=== PATIENT | female | born 1975 | race Caucasian/White ===

== ENCOUNTER 2018-06-07 11:59 | Emergency (ER) | payer OTHER ==
[~2018-06-07 11:59] MED LIST: ALB0.5 INH; ALLERGY SHOTS; ATR10 PO; BLOOD PRESSURE MED PO; CETI-459 PO; FLUT16SP20 NS; IBUP-1618 PO; KET10 PO; KETO5DRO50 OP; LO OVRAL; LOR5 PO; LOR5/325 PO; MELA3TAB31 PO; METXR500 PO; MONT10TA PO; MONT10TA22 PO; OMEP-114 PO; ONDA4TAB PO
[2018-06-07] MEDS ORDERED: CARV25TA77 PO (12:16)
[2018-06-07] MEDS ORDERED: LOSA-54 PO (12:16)
--- NOTE | 2018-06-07 12:18 | ER Report ---
History and Physical Time Seen By MD: 12:14 Hx. of Stated Complaint: BACK SIDE PAIN HPI/ROS CHIEF COMPLAINT: Right flank pain HISTORY OF PRESENT ILLNESS: This is a 43-year-old female presents to the emergency department for right flank pain. Patient states that yesterday she had her back adjusted by her chiropractor. States that last night she developed sudden onset of right flank pain, progressively getting worse throughout the night. Nothing that she takes is helping. Patient is tearful. She does have nausea no vomiting. No diarrhea. No fevers or chills. No other complaints at this time. Although she does state that she has had some mild dysuria. REVIEW OF SYSTEMS: Constitutional: No fever, no chills. Eyes: No discharge. ENT: No sore throat. Cardiovascular: No chest pain, no palpitations. Respiratory: No cough, no shortness of breath. Gastrointestinal: As above. Genitourinary: No hematuria. Musculoskeletal: As above. Skin: No rashes. Neurological: No headache. Allergies: Coded Allergies: Wheat Flour (Verified Allergy, Severe, ANAPHALACTSIS, 06/07/18) levofloxacin (Verified Allergy, Severe, HIVES, 06/07/18) Sulfa (Sulfonamide Antibiotics) (Verified Allergy, Intermediate, SWELLING TO FACE, 06/07/18) Home Meds Active Scripts Nitrofurantoin Monohyd/M-Cryst (MACROBID 100 MG CAPSULE) 100 Mg Capsule, 100 MG PO BID for 5 Days, #10 CAPSULE 0 Refills Prov:KELLY BRAY Reyes ASSOCIATE DIRECTOR REGULATORY AFFAIRS-BC 06/07/18 Reported Medications Dulaglutide (Trulicity) 0.75 Mg/0.5 Ml Pen.injctr, SQ Q7DAY 06/07/18 Losartan/Hydrochlorothiazide (LOSARTAN-HCTZ 100-25 MG TAB) 1 Each Tablet, 1 CAP PO DAILY 06/07/18 Carvedilol (COREG) 25 Mg Tablet, 25 MG PO BID, #10 TAB 06/07/18 Omeprazole (PRILOSEC) 20 Mg Capsule.dr, PO DAILY 06/17/13 [Blood Pressure Med] No Conflict Check, PO HS 06/17/13 Fluticasone Propionate (Flonase) 16 Gm [place], 0 NS BID, 0 Refills 11/30/11 [Lo Ovral] No Conflict Check, 0 Refills 11/30/11 Atorvastatin (Lipitor) 10 Mg Tab, 10 MG PO QHS, 0 Refills 11/30/11 Ibuprofen (Motrin) 400 Mg Tablet, 400 MG PO PRN, #20 0 Refills 11/30/11 Albuterol Sulfate (Albuterol Inh Conc) 2.5 Mg/0.5 Ml Nebu, 2.5 MG INH ONCE, 0 Refills DILUTE BEFORE USING 05/29/08 Cetirizine Hcl (Zyrtec) 10 Mg Tablet, 10 MG PO QDAY, 0 Refills 05/29/08 Montelukast Sodium (Singulair) 10 Mg Tablet, 10 MG PO QDAY, 0 Refills 05/29/08 Discontinued Reported Medications Montelukast Sodium (SINGULAIR) 10 Mg Tablet, PO DAILY 06/17/13 Metformin Hcl (Metformin Er) 500 Mg Tab.sr.24h, 500 MG PO, 0 Refills 11/30/11 Discontinued Scripts Ondansetron (ZOFRAN ODT) 4 Mg Tab.rapdis, 4 MG PO Q6H PRN for NAUSEA, #20 TAB 0 Refills TAKE 1 TABLET BY MOUTH EVERY 12 HOURS Prov:GALE COLMENARES MD 06/17/13 Ketorolac Tromethamine (KETOROLAC TROMETHAMINE) 10 Mg Tab, 10 MG PO Q6H PRN for PAIN, #12 TAB 0 Refills Prov:GALE COLMENARES MD 06/17/13 Hydrocodone Bit/Acetaminophen (HYDROCODON-ACETAMINOPHEN 5-325) 1 Each Tablet, 1 EACH PO Q4-6H PRN for PAIN, #12 0 Refills TAKE ONE TABLET BY MOUTH EVERY 4-6 HOURS NEEDED FOR PAIN Prov:GALE COLMENARES MD 06/17/13 Past Medical/Surgical History The patient has a past medical and surgical history of heart murmur, hypertension, hypercholesterolemia, bronchitis, pneumonia, wears glasses, prediabetic, does take metformin, knee surgeries, tonsillectomy, anxiety. Reviewed Nurses Notes: Yes Hx Smoking: No Hx Substance Use Disorder: No Hx Alcohol Use: Yes (OCC) Constitutional Vital Sign - Last 24 Hours 06/07/18 06/07/18 06/07/18 06/07/18 12:03 12:09 12:30 12:59 Temp 97.9 Pulse 91 90 Resp 13 B/P (MAP) 163/101 (121) 163/101 178/86 (116) Pulse Ox 95 88 O2 Delivery Room Air 06/07/18 06/07/18 06/07/18 06/07/18 13:00 13:29 13:34 14:00 Pulse 89 83 B/P (MAP) 139/68 (91) 167/97 (120) Pulse Ox 95 97 06/07/18 06/07/18 06/07/18 06/07/18 14:04 14:09 14:30 14:39 Pulse 82 86 89 B/P (MAP) 167/83 (111) Pulse Ox 97 97 90 06/07/18 15:00 B/P (MAP) 168/77 (107) Physical Exam General Appearance: The patient is alert, has no immediate need for airway protection and no signs of toxicity. Eyes: Pupils equal and round no pallor or injection. ENT, Mouth: Mucous membranes are moist. Respiratory: There are no retractions, lungs are clear to auscultation. Cardiovascular: Regular rate and rhythm, systolic murmur, no clicks or rubs. Gastrointestinal: Abdomen is round, soft and non tender, no masses, bowel sounds normal. Neurological: Alert and oriented 4. Moving all extremities. Following all commands. No focal neuro deficits. Skin: Warm and dry, no rashes. Musculoskeletal: Neck is supple non tender. Right CVA tenderness. Extremities are nontender, nonswollen and have full range of motion. DIFFERENTIAL DIAGNOSIS: After history and physical exam differential diagnosis was considered for back pain including but not limited to muscular pain, herniated disc, spine fracture, intra-abdominal causes and urinary tract i nfection. Medical Decision Making Data Points Result Diagram: 06/07/18 1246 06/07/18 1246 Laboratory Hematology Test 06/07/18 12:46 06/07/18 13:19 Red Blood Count 4.80 M/uL (4.17-5.56) Mean Corpuscular Volume 82.2 fL (80.0-96.0) Mean Corpuscular Hemoglobin 27.9 pg (26.0-33.0) Mean Corpuscular Hemoglobin Concent 34.0 g/dL (32.0-36.0) Red Cell Distribution Width 13.3 % (11.5-14.5) Mean Platelet Volume 7.7 fL (7.2-11.1) Neutrophils (%) (Auto) 82.4 % (39.4-72.5) Lymphocytes (%) (Auto) 11.4 % (17.6-49.6) Monocytes (%) (Auto) 5.8 % (4.1-12.4) Eosinophils (%) (Auto) 0.1 % (0.4-6.7) Basophils (%) (Auto) 0.3 % (0.3-1.4) Nucleated RBC Relative Count (auto) 0.0 /100WBC Neutrophils # (Auto) 11.8 K/uL (2.0-7.4) Lymphocytes # (Auto) 1.6 K/uL (1.3-3.6) Monocytes # (Auto) 0.8 K/uL (0.3-1.0) Eosinophils # (Auto) 0.0 K/uL (0.0-0.5) Basophils # (Auto) 0.0 K/uL (0.0-0.1) Nucleated RBC Absolute Count (auto) 0.01 K/uL Sodium Level 138 mmol/L (137-145) Potassium Level 3.9 mmol/L (3.5-5.0) Chloride Level 104 mmol/L (98-107) Carbon Dioxide Level 23 mmol/L (22-31) Blood Urea Nitrogen 16 mg/dl (7-18) Creatinine 0.80 mg/dl (0.52-1.04) Glomerular Filtration Rate Calc > 60.0 Random Glucose 110 mg/dl (75-110) Calcium Level 9.4 mg/dl (8.4-10.2) Total Bilirubin 1.2 mg/dl (0.2-1.3) Aspartate Amino Transf (AST/SGOT) 20 U/L (0-35) Alanine Aminotransferase (ALT/SGPT) 27 U/L (0-56) Alkaline Phosphatase 90 U/L (0-126) Total Protein 7.6 g/dl (6.3-8.2) Albumin 4.0 g/dl (3.5-5.0) Human Chorionic Gonadotropin, Qual Negative (NEGATIVE) Urine Color Yellow Urine Clarity Slightly-cloudy Urine pH 5.0 pH (4.8-9.5) Urine Specific [place] 1.014 Urine Protein 100 mg/dL (NEGATIVE) Urine Glucose (UA) Negative mg/dL (NEGATIVE) Urine Ketones Negative mg/dL (NEGATIVE) Urine Blood Moderate (NEGATIVE) Urine Nitrite Negative (NEGATIVE) Urine Bilirubin Negative (NEGATIVE) Urine Urobilinogen Negative mg/dL (0.2-1.9) Urine Leukocyte Esterase Moderate (NEGATIVE) Urine RBC 70 /HPF (0-2/HPF) Urine WBC 221 /HPF (0-5/HPF) Urine Squamous Epithelial Cells Many /LPF (</=FEW) Urine Transitional Epithelial Cells Moderate /LPF (NONE-FEW) Urine Bacteria Moderate /HPF (NONE-FEW) Urine Mucus Few /HPF (NONE-FEW) Chemistry Test 06/07/18 12:46 06/07/18 13:19 White Blood Count 14.4 k/uL (4.5-11.0) Red Blood Count 4.80 M/uL (4.17-5.56) Hemoglobin 13.4 g/dL (12.0-16.0) Hematocrit 39.5 % (34.0-47.0) Mean Corpuscular Volume 82.2 fL (80.0-96.0) Mean Corpuscular Hemoglobin 27.9 pg (26.0-33.0) Mean Corpuscular Hemoglobin Concent 34.0 g/dL (32.0-36.0) Red Cell Distribution Width 13.3 % (11.5-14.5) Platelet Count 332 K/uL (150-450) Mean Platelet Volume 7.7 fL (7.2-11.1) Neutrophils (%) (Auto) 82.4 % (39.4-72.5) Lymphocytes (%) (Auto) 11.4 % (17.6-49.6) Monocytes (%) (Auto) 5.8 % (4.1-12.4) Eosinophils (%) (Auto) 0.1 % (0.4-6.7) Basophils (%) (Auto) 0.3 % (0.3-1.4) Nucleated RBC Relative Count (auto) 0.0 /100WBC Neutrophils # (Auto) 11.8 K/uL (2.0-7.4) Lymphocytes # (Auto) 1.6 K/uL (1.3-3.6) Monocytes # (Auto) 0.8 K/uL (0.3-1.0) Eosinophils # (Auto) 0.0 K/uL (0.0-0.5) Basophils # (Auto) 0.0 K/uL (0.0-0.1) Nucleated RBC Absolute Count (auto) 0.01 K/uL Glomerular Filtration Rate Calc > 60.0 Calcium Level 9.4 mg/dl (8.4-10.2) Total Bilirubin 1.2 mg/dl (0.2-1.3) Aspartate Amino Transf (AST/SGOT) 20 U/L (0-35) Alanine Aminotransferase (ALT/SGPT) 27 U/L (0-56) Alkaline Phosphatase 90 U/L (0-126) Total Protein 7.6 g/dl (6.3-8.2) Albumin 4.0 g/dl (3.5-5.0) Human Chorionic Gonadotropin, Qual Negative (NEGATIVE) Urine Color Yellow Urine Clarity Slightly-cloudy Urine pH 5.0 pH (4.8-9.5) Urine Specific [place] 1.014 Urine Protein 100 mg/dL (NEGATIVE) Urine Glucose (UA) Negative mg/dL (NEGATIVE) Urine Ketones Negative mg/dL (NEGATIVE) Urine Blood Moderate (NEGATIVE) Urine Nitrite Negative (NEGATIVE) Urine Bilirubin Negative (NEGATIVE) Urine Urobilinogen Negative mg/dL (0.2-1.9) Urine Leukocyte Esterase Moderate (NEGATIVE) Urine RBC 70 /HPF (0-2/HPF) Urine WBC 221 /HPF (0-5/HPF) Urine Squamous Epithelial Cells Many /LPF (</=FEW) Urine Transitional Epithelial Cells Moderate /LPF (NONE-FEW) Urine Bacteria Moderate /HPF (NONE-FEW) Urine Mucus Few /HPF (NONE-FEW) Urinalysis Test 06/07/18 13:19 Urine Color Yellow Urine Clarity Slightly-cloudy Urine pH 5.0 pH (4.8-9.5) Urine Specific [place] 1.014 Urine Protein 100 mg/dL (NEGATIVE) Urine Glucose (UA) Negative mg/dL (NEGATIVE) Urine Ketones Negative mg/dL (NEGATIVE) Urine Blood Moderate (NEGATIVE) Urine Nitrite Negative (NEGATIVE) Urine Bilirubin Negative (NEGATIVE) Urine Urobilinogen Negative mg/dL (0.2-1.9) Urine Leukocyte Esterase Moderate (NEGATIVE) Urine RBC 70 /HPF (0-2/HPF) Urine WBC 221 /HPF (0-5/HPF) Urine Squamous Epithelial Cells Many /LPF (</=FEW) Urine Transitional Epithelial Cells Moderate /LPF (NONE-FEW) Urine Bacteria Moderate /HPF (NONE-FEW) Urine Mucus Few /HPF (NONE-FEW) EKG/Imaging Imaging Location: [facility] Patient: Rosa Tapia : 1975 Visit/Account:[id number] Date of Sevice: 06/07/2018 ABDOMEN/PELVIS W/O CONTRAST COMPARISONS: None. ADDITIONAL PERTINENT HISTORY: Right flank pain. TECHNIQUE: Multiple axial images are obtained from the lung bases through the lesser trochanters without IV contrast. One of the following dose optimization techniques was utilized in the performance of this exam: Automated exposure control; adjustment of the mA and/or kV according to the patient's size; or use of an iterative reconstruction technique. Specific details can be referenced in the facility's radiology CT exam operational policy. FINDINGS: Lung bases: Negative. Free air and free fluid: None. Liver: Negative for a noncontrasted examination.. Spleen: Negative for a noncontrasted examination. Adrenal glands: Negative. Kidneys, ureters and urinary bladder: Mild nonspecific stranding about both kidneys somewhat greater on the right than left. Minimal right-sided hydroureteronephrosis without clear evidence of a ureteral calculus which suggests a recently passed stone from the right collecting system. No right renal calculi. No left renal or ureteral calculi.. Pancreas: Grossly negative. Gallbladder: Negative.. Bowel and mesentery: Negative including a normal-appearing appendix in the right lower quadrant.. Lymph node assessment: Negative. Abdominal pelvic vasculature: Mild atherosclerotic disease of the abdominal aorta and its major branches.. Intrapelvic contents: Negative.. Surrounding soft tissues: Negative. Osseous structures: Previous fusion at the thoracolumbar junction. Mild spondylitic change at multiple levels. No acute appearing bony abnormalities.. IMPRESSION: 1. Findings suggestive of a recently passed calculus from the right collecting system with mild right-sided hydroureteronephrosis without evidence of renal or ureteral calculi at this time. 2. No other acute intra-abdominal or intrapelvic process. Report Dictated By: Raul Cortez MD at 06/07/2018 1:48 PM Report E-Signed By: Raul Cortez MD at 06/07/2018 1:54 PM [email or web address]:[email or web address] ED Course/Re-evaluation Clinical Indication for ER IV: Hydration, IV Access ED Course The patient was admitted to a room. Extremities were obtained. Differential diagnoses were considered. An IV was started. A CBC, CMP and UA were obtained. A 1 L normal saline bolus was given. Patient was given 50 g IV fentanyl, 4 mg IV Zofran, 30 mg IV Toradol. Lab studies showing white blood cell count 14.4, with a left shift, chemistry unremarkable, UA showing moderate blood, gross urinary tract infection, with urine white blood cells at 221. CT of the abdomen pelvis negative for a renal colic, however they do state that there is hydronephrosis on the right side is likely that the patient did pass a stone. Given the pain as well as the likely passing of a renal stone and the severity of the urinary tract infection 1 g of Rocephin was given IV. She was also given Macrobid to go home. Patient states she is feeling much better after the medications. I did recommend that she follow up with her PCP within one week for reevaluation. Patient expressed understanding and was discharged home. Encouraged to return to the ED for any other concerns or worsening symptoms. Decision to Disposition Date: Jun 07, 2018 Decision to Disposition Time: 15:06 Depart Departure Latest Vital Signs Vital Signs Date Time Temp Pulse Resp B/P (MAP) Pulse Ox O2 Delivery O2 Flow Rate FiO2 06/07/18 15:00 168/77 (107) 06/07/18 14:39 89 90 06/07/18 12:09 97.9 13 Room Air Impression: Primary Impression: Renal colic on right side Additional Impression: Urinary tract infection Condition: Stable Disposition: HOME OR SELF-CARE Referrals: VY VALERIO PA-C (PCP) 1 Week New Scripts Nitrofurantoin Monohyd/M-Cryst (MACROBID 100 MG CAPSULE) 100 Mg Capsule 100 MG PO BID for 5 Days, #10 CAPSULE 0 Refills Prov: KELLY BRAY ASSOCIATE DIRECTOR REGULATORY AFFAIRS-BC 06/07/18 Patient Instructions: Kidney Stones (ED), Urinary Tract Infection in Women (ED) Additional Instructions: Your blood work showing a slight elevation in white blood cell count, kidney function is good. The elevation in white blood cell count could be secondary to stress from the pain and discomfort as well as passing the kidney stone and the urinary tract infection. I did give you one dose of IV antibiotics. Take the Macrobid as prescribed. Continue drinking lots of water. Get plenty of rest. Take ibuprofen or Tylenol as needed for pain. Please follow-up with Anusha Valerio within 1 week for reevaluation of the your urinary tract infection. Return to the emergency department for any other concerns or worsening symptoms. Problem Qualifiers Additional Impression: Urinary tract infection Urinary tract infection type: acute cystitis Hematuria presence: with hematuria Qualified Codes: N30.01 - Acute cystitis with hematuria KELLY BRAY-MADALYN Jun 07, 2018 12:18
[2018-06-07] MEDS ORDERED: DULA0.75 SQ (12:23)
[2018-06-07] MEDS ORDERED: NS(*) 0.9% 1000 ML BAG 1,000 ML IV ONE (12:26)
[2018-06-07] MEDS ORDERED: ONDANSETRON 4 MG/2 ML VIAL IVP ONE (12:30)
[2018-06-07] MEDS ORDERED: fentaNYL CITR 100 MCG/2 ML AMP IVP ONE (12:30)
[2018-06-07 12:56] LABS: PLATELET COUNT, AUTOMATED 332 K/uL (150-450)
--- NOTE | 2018-06-07 13:59 | RADIOLOGY IMAGING REPORT ---
FACILITY: [facility] PATIENT NAME: Rosa Tapia : 1975 MR: [id number] V: [id number] EXAM DATE: ORDERING PHYSICIAN: KELLY BRAY TECHNOLOGIST: Location: [facility] - [place] Patient: Rosa Tapia : 1975 Visit/Account:[id number] Date of Sevice: 06/07/2018 ABDOMEN/PELVIS W/O CONTRAST COMPARISONS: None. ADDITIONAL PERTINENT HISTORY: Right flank pain. TECHNIQUE: Multiple axial images are obtained from the lung bases through the lesser trochanters with out IV contrast. One of the following dose optimization techniques was utilized in the performance o f this exam: Automated exposure control; adjustment of the mA and/or kV according to the patient's si ze; or use of an iterative reconstruction technique. Specific details can be referenced in the [facility]'s radiology CT exam operational policy. FINDINGS: Lung bases: Negative. Free air and free fluid: None. Liver: Negative for a noncontrasted examination.. Spleen: Negative for a noncontrasted examination. Adrenal glands: Negative. Kidneys, ureters and urinary bladder: Mild nonspecific stranding about both kidneys somewhat greater on the right than left. Minimal right-sided hydroureteronephrosis without clear evidence of a ureter al calculus which suggests a recently passed stone from the right collecting system. No right renal calculi. No left renal or ureteral calculi.. Pancreas: Grossly negative. Gallbladder: Negative.. Bowel and mesentery: Negative including a normal-appearing appendix in the right lower quadrant.. Lymph node assessment: Negative. Abdominal pelvic vasculature: Mild atherosclerotic disease of the abdominal aorta and its major branc hes.. Intrapelvic contents: Negative.. Surrounding soft tissues: Negative. Osseous structures: Previous fusion at the thoracolumbar junction. Mild spondylitic change at multip le levels. No acute appearing bony abnormalities.. IMPRESSION: 1. Findings suggestive of a recently passed calculus from the right collecting system with mild righ t-sided hydroureteronephrosis without evidence of renal or ureteral calculi at this time. 2. No other acute intra-abdominal or intrapelvic process. Report Dictated By: Raul Cortez MD at 06/07/2018 1:48 PM Report E-Signed By: Raul Cortez MD at 06/07/2018 1:54 PM [email or web address]
[2018-06-07] MEDS ORDERED: cefTRIAXone 1 GM VIAL IVP ONE (14:05)
[2018-06-07] MEDS ORDERED: KETOROLAC 30 MG/ML VIAL IVP ONE (14:05)
[2018-06-07 15:00] VITALS: BP 168/77
[2018-06-07] MEDS ORDERED: NITR-105 PO (15:08)
== END 2018-06-07 15:19 | disposition home or self-care (01) ==
LOC: ER 12:51
DX: N30.01 Acute cystitis with hematuria (principal); N23 Unspecified renal colic; N13.30 Unspecified hydronephrosis
CPT/HCPCS: 74176; 81001; 84703; 85025; 96361; 96374; 96375; 99284; J0696; J1885; J2405; J3010; J7030; 82040; 82247; 82310; 82374; 82435; 82565; 82947; 84075; 84132; 84155; 84295; 84450; 84460; 84520

== ENCOUNTER 2018-06-09 14:33 | Emergency (ER) | payer OTHER ==
[~2018-06-09 14:33] MED LIST changes: -HYDR-385 PO; -TAMS0.4C25 PO
--- NOTE | 2018-06-09 14:38 | ER Report ---
History and Physical Time Seen By MD: 14:38 HPI/ROS CHIEF COMPLAINT: Weakness, dizzy, low blood pressure HISTORY OF PRESENT ILLNESS:Patient was in the ER two days ago and was told she just passed a kidney stone. Patient right hydronephrosis on CT scan. Patient also was found to have UTI. Patient was put on Macrobid and has been taking her antibiotics. States her UTI symptoms are better. Last night patient started to have right flank pain again. Took one of her 's OxyContin. Patient states she slept really well. When patient woke up this am, she was able to eat some toast. Patient stated when she urinated this morning, there was some bloody mucous in the urine. Patient was wondering if she passed another stone. Patient stated she was very weak. Had some dizziness and nausea. Did not vomit. Patient stated it wasn't hard to breathe but it felt very weak to breath. It as if she didn't have the strength to take a deep breath. Stated she was very diaphoretic. Patient took her blood pressure on her home monitor and it was 80/40. Patient called the ambulance. REVIEW OF SYSTEMS: Respiratory: No cough, no dyspnea. Feels weak to breathe deeply. Cardiovascular: No chest pain, no palpitations. Gastrointestinal: Nausea, no vomiting. No abdominal pain. Musculoskeletal: No back pain. Some right flank pain. Allergies: Coded Allergies: Wheat Flour (Verified Allergy, Severe, ANAPHALACTSIS, 06/07/18) levofloxacin (Verified Allergy, Severe, HIVES, 06/07/18) Sulfa (Sulfonamide Antibiotics) (Verified Allergy, Intermediate, SWELLING TO FACE, 06/07/18) Home Meds Active Scripts Tamsulosin Hcl (FLOMAX) 0.4 Mg Cap.er.24h, 0.4 MG PO DAILY, #15 CAP Prov:ERIC MARTÍNEZ [facility] 06/09/18 Hydrocodone Bit/Acetaminophen (HYDROCODON-ACETAMINOPHEN 5-325) 1 Each Tablet, 1 EACH PO Q4-6H PRN for PAIN, #6 TAB Prov:ERIC MARTÍNEZ [facility] 06/09/18 Nitrofurantoin Monohyd/M-Cryst (MACROBID 100 MG CAPSULE) 100 Mg Capsule, 100 MG PO BID for 5 Days, #10 CAPSULE 0 Refills Prov:KELLY [place] [facility]- 06/07/18 Reported Medications Dulaglutide (Trulicity) 0.75 Mg/0.5 Ml Pen.injctr, SQ Q7DAY 06/07/18 Losartan/Hydrochlorothiazide (LOSARTAN-HCTZ 100-25 MG TAB) 1 Each Tablet, 1 CAP PO DAILY 06/07/18 Carvedilol (COREG) 25 Mg Tablet, 25 MG PO BID, #10 TAB 06/07/18 Omeprazole (PRILOSEC) 20 Mg Capsule.dr, PO DAILY 06/17/13 [Blood Pressure Med] No Conflict Check, PO HS 06/17/13 Fluticasone Propionate (Flonase) 16 Gm [place], 0 NS BID, 0 Refills 11/30/11 [Lo Ovral] No Conflict Check, 0 Refills 11/30/11 Atorvastatin (Lipitor) 10 Mg Tab, 10 MG PO QHS, 0 Refills 11/30/11 Ibuprofen (Motrin) 400 Mg Tablet, 400 MG PO PRN, #20 0 Refills 11/30/11 Albuterol Sulfate (Albuterol Inh Conc) 2.5 Mg/0.5 Ml Nebu, 2.5 MG INH ONCE, 0 Refills DILUTE BEFORE USING 05/29/08 Cetirizine Hcl (Zyrtec) 10 Mg Tablet, 10 MG PO QDAY, 0 Refills 05/29/08 Montelukast Sodium (Singulair) 10 Mg Tablet, 10 MG PO QDAY, 0 Refills 05/29/08 Discontinued Reported Medications Montelukast Sodium (SINGULAIR) 10 Mg Tablet, PO DAILY 06/17/13 Metformin Hcl (Metformin Er) 500 Mg Tab.sr.24h, 500 MG PO, 0 Refills 11/30/11 Discontinued Scripts Ondansetron (ZOFRAN ODT) 4 Mg Tab.rapdis, 4 MG PO Q6H PRN for NAUSEA, #20 TAB 0 Refills TAKE 1 TABLET BY MOUTH EVERY 12 HOURS Prov:GALE COLMENARES MD 06/17/13 Ketorolac Tromethamine (KETOROLAC TROMETHAMINE) 10 Mg Tab, 10 MG PO Q6H PRN for PAIN, #12 TAB 0 Refills Prov:GALE COLMENARES MD 06/17/13 Hydrocodone Bit/Acetaminophen (HYDROCODON-ACETAMINOPHEN 5-325) 1 Each Tablet, 1 EACH PO Q4-6H PRN for PAIN, #12 0 Refills TAKE ONE TABLET BY MOUTH EVERY 4-6 HOURS NEEDED FOR PAIN Prov:GALE COLMENARES MD 06/17/13 Past Medical/Surgical History Patient medical history of a heart murmur, hypercholesterolemia, and is pre-renae betic. Patient states she gets bronchitis and had pneumonia in 2018. Patient has had 3 knee surgeries and a tonsillectomy. Hx Smoking: No Hx Substance Use Disorder: No Hx Alcohol Use: Yes (OCC) Constitutional Vital Sign - Last 24 Hours 06/09/18 06/09/18 06/09/18 06/09/18 14:35 15:00 15:37 15:40 Temp 98.4 Pulse 83 Resp 20 B/P (MAP) 122/74 110/70 (83) 119/69 (86) 110/84 (93) Pulse Ox 95 88 O2 Delivery Room Air 06/09/18 06/09/18 06/09/18 06/09/18 15:41 15:44 15:55 16:00 Pulse 77 74 82 79 B/P (MAP) 120/86 (97) 119/69 (86) 95/66 (76) 111/79 (90) 110/84 (93) 120/86 (97) Pulse Ox 93 06/09/18 16:30 Pulse 77 B/P (MAP) 115/65 (82) Pulse Ox 94 Physical Exam General Appearance: The patient is alert, has no immediate need for airway protection and no current signs of toxicity. Eyes: Pupils equal and round no injection. Respiratory: Chest is non tender, lungs are clear to auscultation. Cardiac: Regular rate and rhythm. Murmur 2/6 noted. Gastrointestinal: Abdomen is soft and non tender, no masses, bowel sounds normal. Skin: No rashes or lesions. : Tenderness to palpitation over right flank DIFFERENTIAL DIAGNOSIS: After history and physical exam differential diagnosis was considered for hypotension, hypoglycemia, and sepsis. Medical Decision Making Data Points Result Diagram: 06/09/18 1511 06/09/18 1511 Laboratory Hematology Test 06/09/18 15:11 06/09/18 15:57 Red Blood Count 4.34 M/uL (4.17-5.56) Mean Corpuscular Volume 81.8 fL (80.0-96.0) Mean Corpuscular Hemoglobin 27.7 pg (26.0-33.0) Mean Corpuscular Hemoglobin Concent 33.8 g/dL (32.0-36.0) Red Cell Distribution Width 13.5 % (11.5-14.5) Mean Platelet Volume 8.5 fL (7.2-11.1) Neutrophils (%) (Auto) 57.3 % (39.4-72.5) Lymphocytes (%) (Auto) 26.0 % (17.6-49.6) Monocytes (%) (Auto) 14.4 % (4.1-12.4) Eosinophils (%) (Auto) 1.9 % (0.4-6.7) Basophils (%) (Auto) 0.4 % (0.3-1.4) Nucleated RBC Relative Count (auto) 0.0 /100WBC Neutrophils # (Auto) 6.1 K/uL (2.0-7.4) Lymphocytes # (Auto) 2.8 K/uL (1.3-3.6) Monocytes # (Auto) 1.5 K/uL (0.3-1.0) Eosinophils # (Auto) 0.2 K/uL (0.0-0.5) Basophils # (Auto) 0.0 K/uL (0.0-0.1) Nucleated RBC Absolute Count (auto) 0.00 K/uL Sodium Level 136 mmol/L (137-145) Potassium Level 3.6 mmol/L (3.5-5.0) Chloride Level 101 mmol/L (98-107) Carbon Dioxide Level 25 mmol/L (22-31) Blood Urea Nitrogen 13 mg/dl (7-18) Creatinine 0.70 mg/dl (0.52-1.04) Glomerular Filtration Rate Calc > 60.0 Random Glucose 99 mg/dl (75-110) Calcium Level 8.8 mg/dl (8.4-10.2) Total Bilirubin 0.5 mg/dl (0.2-1.3) Aspartate Amino Transf (AST/SGOT) 20 U/L (0-35) Alanine Aminotransferase (ALT/SGPT) 23 U/L (0-56) Alkaline Phosphatase 74 U/L (0-126) Total Protein 7.3 g/dl (6.3-8.2) Albumin 3.7 g/dl (3.5-5.0) Urine Color Yellow Urine Clarity Cloudy Urine pH 5.0 pH (4.8-9.5) Urine Specific [place] 1.021 Urine Protein 30 mg/dL (NEGATIVE) Urine Glucose (UA) Negative mg/dL (NEGATIVE) Urine Ketones Negative mg/dL (NEGATIVE) Urine Blood Small (NEGATIVE) Urine Nitrite Negative (NEGATIVE) Urine Bilirubin Negative (NEGATIVE) Urine Urobilinogen Negative mg/dL (0.2-1.9) Urine Leukocyte Esterase Trace (NEGATIVE) Urine RBC 3 /HPF (0-2/HPF) Urine WBC 22 /HPF (0-5/HPF) Urine Squamous Epithelial Cells Many /LPF (</=FEW) Urine Bacteria Negative /HPF (NONE-FEW) Urine Hyaline Casts Moderate /LPF (NONE-FEW) Urine Mucus Few /HPF (NONE-FEW) Chemistry Test 06/09/18 15:11 06/09/18 15:57 White Blood Count 10.6 k/uL (4.5-11.0) Red Blood Count 4.34 M/uL (4.17-5.56) Hemoglobin 12.0 g/dL (12.0-16.0) Hematocrit 35.6 % (34.0-47.0) Mean Corpuscular Volume 81.8 fL (80.0-96.0) Mean Corpuscular Hemoglobin 27.7 pg (26.0-33.0) Mean Corpuscular Hemoglobin Concent 33.8 g/dL (32.0-36.0) Red Cell Distribution Width 13.5 % (11.5-14.5) Platelet Count 355 K/uL (150-450) Mean Platelet Volume 8.5 fL (7.2-11.1) Neutrophils (%) (Auto) 57.3 % (39.4-72.5) Lymphocytes (%) (Auto) 26.0 % (17.6-49.6) Monocytes (%) (Auto) 14.4 % (4.1-12.4) Eosinophils (%) (Auto) 1.9 % (0.4-6.7) Basophils (%) (Auto) 0.4 % (0.3-1.4) Nucleated RBC Relative Count (auto) 0.0 /100WBC Neutrophils # (Auto) 6.1 K/uL (2.0-7.4) Lymphocytes # (Auto) 2.8 K/uL (1.3-3.6) Monocytes # (Auto) 1.5 K/uL (0.3-1.0) Eosinophils # (Auto) 0.2 K/uL (0.0-0.5) Basophils # (Auto) 0.0 K/uL (0.0-0.1) Nucleated RBC Absolute Count (auto) 0.00 K/uL Glomerular Filtration Rate Calc > 60.0 Calcium Level 8.8 mg/dl (8.4-10.2) Total Bilirubin 0.5 mg/dl (0.2-1.3) Aspartate Amino Transf (AST/SGOT) 20 U/L (0-35) Alanine Aminotransferase (ALT/SGPT) 23 U/L (0-56) Alkaline Phosphatase 74 U/L (0-126) Total Protein 7.3 g/dl (6.3-8.2) Albumin 3.7 g/dl (3.5-5.0) Urine Color Yellow Urine Clarity Cloudy Urine pH 5.0 pH (4.8-9.5) Urine Specific [place] 1.021 Urine Protein 30 mg/dL (NEGATIVE) Urine Glucose (UA) Negative mg/dL (NEGATIVE) Urine Ketones Negative mg/dL (NEGATIVE) Urine Blood Small (NEGATIVE) Urine Nitrite Negative (NEGATIVE) Urine Bilirubin Negative (NEGATIVE) Urine Urobilinogen Negative mg/dL (0.2-1.9) Urine Leukocyte Esterase Trace (NEGATIVE) Urine RBC 3 /HPF (0-2/HPF) Urine WBC 22 /HPF (0-5/HPF) Urine Squamous Epithelial Cells Many /LPF (</=FEW) Urine Bacteria Negative /HPF (NONE-FEW) Urine Hyaline Casts Moderate /LPF (NONE-FEW) Urine Mucus Few /HPF (NONE-FEW) Urinalysis Test 06/09/18 15:57 Urine Color Yellow Urine Clarity Cloudy Urine pH 5.0 pH (4.8-9.5) Urine Specific [place] 1.021 Urine Protein 30 mg/dL (NEGATIVE) Urine Glucose (UA) Negative mg/dL (NEGATIVE) Urine Ketones Negative mg/dL (NEGATIVE) Urine Blood Small (NEGATIVE) Urine Nitrite Negative (NEGATIVE) Urine Bilirubin Negative (NEGATIVE) Urine Urobilinogen Negative mg/dL (0.2-1.9) Urine Leukocyte Esterase Trace (NEGATIVE) Urine RBC 3 /HPF (0-2/HPF) Urine WBC 22 /HPF (0-5/HPF) Urine Squamous Epithelial Cells Many /LPF (</=FEW) Urine Bacteria Negative /HPF (NONE-FEW) Urine Hyaline Casts Moderate /LPF (NONE-FEW) Urine Mucus Few /HPF (NONE-FEW) EKG/Imaging Imaging 2 VIEWS CHEST INDICATION: Shortness of breath, low blood pressure, dizziness COMPARISON: X-ray examination of the chest from a very 11/03/2017 FINDINGS: Heart appears enlarged. No current failure, infiltrate, consolidation, effusion or pneumothorax. Mild multilevel spondylosis without acute bony finding. IMPRESSION: 1. Cardiomegaly without acute finding Report Dictated By: Quinn Ann MD at 06/09/2018 3:46 PM Report E-Signed By: Quinn Ann MD at 06/09/2018 3:47 PM ED Course/Re-evaluation ED Course Patient is admitted and examined, history and physical were obtained. Differential diagnoses were considered. On examination lungs are clear, heart is regular, abdomen soft nontender. Patient had no CVA tenderness noted on exam. Due to the patient being diagnosed with urinary tract infection a couple days ago and having these episodes where she is feeling very lightheaded a CBC, CMP were done. Patient did not have an elevated white count, urinalysis showed improvement of urinary tract infection with only 22 white blood cells per high-power field now. While waiting for the labs could back patient did get up in the bathroom. During that time she became extremely lightheaded. Her blood pressure was checked and it was 90/65. I believe that with the improvement in the urinary tract infection she could very well be having vasovagal symptoms secondary to a kidney stone which was unable be visualized on the CT scan. As a result of that we will go ahead and prescribe her pain medication, prescribed Flomax and have the patient strain her urine. She is to follow-up with urology here within the next week. She is return to the emergency room if condition worsens. She is to follow-up with her primary care provider in the next week. I discussed this with the patient who verbalized understanding and agreement with plan. Decision to Disposition Date: Jun 09, 2018 Decision to Disposition Time: 17:16 Depart Departure Latest Vital Signs Vital Signs Date Time Temp Pulse Resp B/P (MAP) Pulse Ox O2 Delivery O2 Flow Rate FiO2 06/09/18 16:30 77 115/65 (82) 94 06/09/18 14:35 98.4 20 Room Air Impression: Primary Impression: Renal colic on right side Additional Impression: Vaso vagal episode Condition: Improved Disposition: HOME OR SELF-CARE Referrals: VY VALERIO PA-C (PCP) New Scripts Tamsulosin Hcl (FLOMAX) 0.4 Mg Cap.er.24h 0.4 MG PO DAILY, #15 CAP Prov: ERIC MARTÍNEZ 06/09/18 Hydrocodone Bit/Acetaminophen (HYDROCODON-ACETAMINOPHEN 5-325) 1 Each Tablet 1 EACH PO Q4-6H PRN for PAIN, #6 TAB Prov: ERIC MARTÍNEZ 06/09/18 Patient Instructions: Renal Colic (ED) Additional Instructions: Increase fluid intake. Get plenty of rest. Follow up with a Urologist this week. Return to the ER if condition worsens. Follow up with your primary care provider in the next 1-2 weeks. Continue with your normal medications. Problem Qualifiers ERIC MARTÍNEZ Jun 09, 2018 14:38
[2018-06-09] MEDS ORDERED: EMS NS 0.9%(*) 1000 ML BAG 1,000 ML IV ONE (15:10)
[2018-06-09 15:31] LABS: PLATELET COUNT, AUTOMATED 355 K/uL (150-450)
--- NOTE | 2018-06-09 15:52 | RADIOLOGY IMAGING REPORT ---
FACILITY: [facility] PATIENT NAME: Rosa Tapia : 1975 MR: [id number] V: [id number] EXAM DATE: ORDERING PHYSICIAN: ERIC MARTÍNEZ TECHNOLOGIST: Location: [facility] [place] Patient: Rosa Tapia : 1975 Visit/Account:[id number] Date of Sevice: 06/09/2018 2 VIEWS CHEST INDICATION: Shortness of breath, low blood pressure, dizziness COMPARISON: X-ray examination of the chest from a very 11/03/2017 FINDINGS: Heart appears enlarged. No current failure, infiltrate, consolidation, effusion or pneumothorax. Mild multilevel spondylosis without acute bony finding. IMPRESSION: 1. Cardiomegaly without acute finding Report Dictated By: Quinn Ann MD at 06/09/2018 3:46 PM Report E-Signed By: Quinn Ann MD at 06/09/2018 3:47 PM WSN:[id number]
[2018-06-09] MEDS ORDERED: NS(*) 0.9% 1000 ML BAG 1,000 ML IV ONE (16:10)
[2018-06-09 16:30] VITALS: BP 115/65
[2018-06-09] MEDS ORDERED: TAMSULOSIN HCL 0.4 MG CAP PO ONE ×2 (17:15→17:20)
[2018-06-09] MEDS ORDERED: ACET/HYDROC 5/325MG TH ER ONLY 2 TAB/BOTTLE PO ONE (17:15)
[2018-06-09] MEDS ORDERED: HYDR-385 PO (17:17)
[2018-06-09] MEDS ORDERED: TAMS0.4C25 PO (17:17)
== END 2018-06-09 17:40 | disposition home or self-care (01) ==
LOC: ER 14:43
DX: N23 Unspecified renal colic (principal); R55 Syncope and collapse
CPT/HCPCS: 71046; 81001; 85025; 96360; 96361; 99283; J7030; 82040; 82247; 82310; 82374; 82435; 82565; 82947; 84075; 84132; 84155; 84295; 84450; 84460; 84520

== ENCOUNTER → 2018-06-09 | Outpatient (CLI) | payer OTHER ==
[~2018-06-09] MED LIST changes: +CARV25TA77 PO; +DULA0.75 SQ; +HYDR-385 PO; +LOSA-54 PO; +NITR-105 PO; +TAMS0.4C25 PO
== END ==
LOC: AMB 14:09
PROVIDERS: ATTEND Nurse Practitioner
DX: R53.1 Weakness (principal); I95.9 Hypotension, unspecified; R11.0 Nausea; R53.83 Other fatigue
CPT/HCPCS: A0425; A0427

== ENCOUNTER → 2018-08-07 | Outpatient (CLI) | payer OTHER ==
[~2018-08-07] MED LIST changes: +HYDR-385 PO; +TAMS0.4C25 PO
--- NOTE | 2018-08-08 08:31 | RADIOLOGY IMAGING REPORT ---
FACILITY: [facility] - [place] PATIENT NAME: BROOKE BRADLEY : [id number] MR: [id number] V: [id number] EXAM DATE: [id number] ORDERING PHYSICIAN: VY VALERIO TECHNOLOGIST: Erin Noble PROCEDURE:BILATERAL DIGITAL SCREENING MAMMOGRAM WITH CAD ASSISTED INTERPRETATION & 3D TOMOSYNTHESIS COMPARISON:None, Baseline Mammogram. INDICATIONS:SCREENING FINDINGS: The breasts are almost entirely fatty. There is no evidence of malignant appearing mass, malignant appearing calcifications or other secondary sign of malignancy in either breast. DIAGNOSTIC CATEGORY 1--NEGATIVE. RECOMMENDATIONS: ROUTINE MAMMOGRAM AND CLINICAL EVALUATION. IMPRESSION: BIRADS 1: Negative. No significant abnormality is seen. Dictated by: Yaimleth Pradhan M.D. on 08/07/2018 at 17:03 Transcribed by: MARIE on 08/08/2018 at 7:59 Approved by: Yamileth Pradhan M.D. on 08/08/2018 at 8:30 [facility]
== END ==
LOC: MAMO 00:47
PROVIDERS: ATTEND Physician Assistant
DX: Z12.31 Encounter for screening mammogram for malignant neoplasm of breast (principal)
CPT/HCPCS: 77063; 77067